=== PATIENT | female | born 1950 | race Caucasian/White ===

== ENCOUNTER 2019-07-21 08:11 | Inpatient (IN) | payer MEDICARE, OTHER ==
[2019-07-14 13:00] LABS: EOSINOPHILS % (AUTO) 1.4 % (1.0-6.0); HEMATOCRIT 39.8 % (36-46); LYMPHOCYTES # (AUTO) 1.4 K/uL (1.0-4.8); LYMPHOCYTES % (AUTO) 21.3 % (22.0-44.0); MEAN CORPUSCULAR HEMOGLOBIN 30.1 pg (26.0-34.0); MEAN CORPUSCULAR HGB CONC 32.7 G/dL (31.0-37.0); MEAN CORPUSCULAR VOLUME 92 fL (80-100); MONOCYTES # (AUTO) 0.6 K/uL (0.1-1.0); MONOCYTES % (AUTO) 9.1 % (2.0-9.0); NEUTROPHILS # (AUTO) 4.4 K/uL (1.8-7.7); NEUTROPHILS % (AUTO) 67.2 % (40.0-70.0); PLATELET COUNT (AUTO) 235 K/uL (150-450); RED BLOOD CELL COUNT(AUTO) 4.32 MIL/uL (4.00-5.20); RED CELL DISTRIBUTION WIDTH 13.1 % (11.5-14.5)
[2019-07-14 13:23] LABS: ANION GAP 6 mmol/L (8-16); CALCIUM, TOTAL 8.9 mg/dL (8.8-10.5); CARBON DIOXIDE 30 mmol/L (22-29); CHLORIDE 103 mmol/L (98-107); CREATININE 0.66 mg/dL (0.60-1.30); GLOMERULAR FILTR. RATE CALC > 60 mL/min (>60); GLUCOSE,RANDOM 87 mg/dL (70-110); POTASSIUM 4.3 mmol/L (3.5-5.1); SODIUM SERUM 139 mmol/L (136-145); UREA NITROGEN, BLOOD 15 mg/dL (7-18)
[2019-07-14 13:28] LABS: PROTHROMBIN TIME 10.3 SEC (9.4-11.6)
[2019-07-14 13:29] LABS: ALANINE AMINOTRANSFERASE 17 U/L (12-78); ALBUMIN 3.7 g/dL (3.4-5.0); ALKALINE PHOSPHATASE 42 U/L (46-116); ASPARTATE AMINOTRANSFERASE 16 U/L (15-37); BILIRUBIN,TOTAL 0.4 mg/dL (0.1-1.0); TOTAL PROTEIN, SERUM 7.2 g/dL (6.4-8.2)
[~2019-07-21] VITALS: Ht 149.9 cm; Wt 75.5 kg
[~2019-07-21 08:11] MED LIST: RINGERS SOLUTION,LACTATED 1,000 ML IV ONE
[2019-07-21] MEDS ORDERED: RINGERS SOLUTION,LACTATED 1,000 ML IV ONE ×2 (08:30→14:08)
[2019-07-21] MEDS ORDERED: BUPIVACAINE LIPOSOME/PF 1.3%-13.3MG/ML SUSPENSION 20 ML VIAL INJ ONE (10:15)
[2019-07-21] MEDS ORDERED: TRANEXAMIC ACID 1,000 MG in DEXTROSE 5%-WATER 50 ML IV ONE (10:15)
[2019-07-21] MEDS ORDERED: SODIUM CHLORIDE 0.9% 100 ML ONE (11:53)
[2019-07-21] MEDS ORDERED: DEXAMETHASONE SOD PHOS 4 MG/ML VIAL IVP ONE (12:00)
[2019-07-21] MEDS ORDERED: METOCLOPRAMIDE HCL 5 MG/ML 2 ML VIAL IVP ONE (12:00)
[2019-07-21] MEDS ORDERED: 0.9% SODIUM CHLORIDE 10 ML VIAL IVP ONE (12:00)
[2019-07-21] MEDS ORDERED: ONDANSETRON HCL 4 MG/2 ML VIAL IVP ONE (12:00)
[2019-07-21] MEDS ORDERED: FentaNYL CITRATE-PF 100 MCG/2 ML VIAL IVP ONE (12:00)
[2019-07-21] MEDS ORDERED: PROPOFOL 1% 20 ML VIAL IVP ONE (12:00)
[2019-07-21] MEDS ORDERED: SODIUM CL IRRIG SOLN BAG 3,000 ML IRRIG ONE (12:10)
[2019-07-21] MEDS ORDERED: BACITRACIN 50,000 UNITS/VIAL ONE (12:10)
[2019-07-21] MEDS ORDERED: BUPIVACAINE HCL/DEX-WATER/PF 0.75% 2 ML AMP ONE (12:32)
[2019-07-21] MEDS ORDERED: PROPOFOL 1000 MG/ISO-OSM 100 ML IV ONE (12:32)
[2019-07-21] MEDS ORDERED: ACETAMINOPHEN 1000 MG/ISO-OSM 100 ML IV ONE (12:33)
[2019-07-21] MEDS ORDERED: HYDROmorphone 2 MG/ML SYRINGE IVP PRN (13:30)
[2019-07-21] MEDS ORDERED: OxyCODONE HCL/ACETAMINOPHEN 5-325 MG TABLET PO PRN (13:30)
[2019-07-21] MEDS ORDERED: DEXTROSE 5%-LACTATED RINGERS 1,000 ML IV SCH (14:37)
[2019-07-21] MEDS ORDERED: DiphenhydrAMINE HCL 50 MG/ML VIAL IVP PRN (14:45)
[2019-07-21] MEDS ORDERED: BISACODYL 10 MG RECTAL RECTAL SUPPOSITORY PR PRN (14:45)
[2019-07-21] MEDS ORDERED: ONDANSETRON HCL 4 MG/2 ML VIAL IVP PRN (14:45)
[2019-07-21] MEDS ORDERED: ZOLPIDEM TARTRATE 10 MG TABLET PO PRN (14:45)
[2019-07-21] MEDS ORDERED: MAG HYDROX/AL HYDROX/SIMETH 30 ML SUSP UDCUP PO PRN (14:45)
[2019-07-21] MEDS ORDERED: BACITRACIN 28.4 GM OINTMENT TP PRN (14:45)
[2019-07-21] MEDS ORDERED: MAGNESIUM HYDROXIDE SUSPENSION 30 ML UDCUP PO PRN (15:15)
[2019-07-21] MEDS ORDERED: ACETAMINOPHEN 325 MG TABLET PO PRN (15:15)
[2019-07-21] MEDS: CYCLOBENZAPRINE HCL 10 MG TABLET PO SCH ×2 (16:00→20:03)
[2019-07-21 16:09] VITALS: BP 126/60
[2019-07-21] MEDS: OxyCODONE HCL/ACETAMINOPHEN 5-325 MG TABLET PO PRN ×2 (17:15→23:52)
[2019-07-21 20:00] VITALS: BP 115/60
[2019-07-21] MEDS: CELECOXIB 100 MG CAPSULE PO SCH (20:02)
[2019-07-21] MEDS: FAMOTIDINE 20 MG TABLET PO SCH (20:03)
[2019-07-21] MEDS: OXYGEN THERAPY IH SCH (20:07)
[2019-07-21] MEDS: DOCUSATE SODIUM 100 MG CAPSULE PO SCH (20:54)
[2019-07-21] MEDS ORDERED: DOCUSATE SODIUM 100 MG CAPSULE PO SCH (21:00)
[2019-07-21] MEDS: CeFAZolin 1 GM/DEXTROSE 50 ML IV SCH (21:26)
[2019-07-21 23:44] VITALS: BP 105/69
[2019-07-22] MEDS: CeFAZolin 1 GM/DEXTROSE 50 ML IV SCH (04:36)
[2019-07-22 05:27] VITALS: BP 99/58
[2019-07-22 05:38] LABS: BASOPHILS % (AUTO) 0.1 % (0.0-2.0); EOSINOPHILS % (AUTO) 0 % (1.0-6.0); HEMATOCRIT 29.6 % (36-46); HEMOGLOBIN 9.9 g/dL (12.0-16.0); LYMPHOCYTES # (AUTO) 0.9 K/uL (1.0-4.8); LYMPHOCYTES % (AUTO) 11.5 % (22.0-44.0); MEAN CORPUSCULAR HEMOGLOBIN 30.6 pg (26.0-34.0); MEAN CORPUSCULAR HGB CONC 33.4 G/dL (31.0-37.0); MEAN CORPUSCULAR VOLUME 92 fL (80-100); MONOCYTES # (AUTO) 0.8 K/uL (0.1-1.0); MONOCYTES % (AUTO) 10.1 % (2.0-9.0); NEUTROPHILS # (AUTO) 6.1 K/uL (1.8-7.7); NEUTROPHILS % (AUTO) 78.3 % (40.0-70.0); PLATELET COUNT (AUTO) 162 K/uL (150-450); RED BLOOD CELL COUNT(AUTO) 3.23 MIL/uL (4.00-5.20); RED CELL DISTRIBUTION WIDTH 12.8 % (11.5-14.5)
[2019-07-22 05:52] LABS: ANION GAP 5 mmol/L (8-16); CALCIUM, TOTAL 7.8 mg/dL (8.8-10.5); CARBON DIOXIDE 29 mmol/L (22-29); CHLORIDE 105 mmol/L (98-107); CREATININE 0.76 mg/dL (0.60-1.30); GLOMERULAR FILTR. RATE CALC > 60 mL/min (>60); GLUCOSE,RANDOM 133 mg/dL (70-110); POTASSIUM 4.4 mmol/L (3.5-5.1); SODIUM SERUM 139 mmol/L (136-145); UREA NITROGEN, BLOOD 15 mg/dL (7-18)
[2019-07-22] MEDS: CYCLOBENZAPRINE HCL 10 MG TABLET PO SCH ×3 (07:48→20:11)
[2019-07-22] MEDS: OxyCODONE HCL/ACETAMINOPHEN 5-325 MG TABLET PO PRN ×2 (07:49→18:24)
[2019-07-22] MEDS: CELECOXIB 100 MG CAPSULE PO SCH ×2 (07:49→20:12)
[2019-07-22 08:20] VITALS: BP 107/67
[2019-07-22] MEDS: DOCUSATE SODIUM 100 MG CAPSULE PO SCH ×2 (08:29→20:12)
[2019-07-22] MEDS: FAMOTIDINE 20 MG TABLET PO SCH ×2 (08:29→20:13)
[2019-07-22] MEDS ORDERED: FAMOTIDINE 20 MG TABLET PO SCH (09:00)
[2019-07-22 12:18] VITALS: BP 88/50
[2019-07-22] MEDS ORDERED: RIVAROXABAN 10 MG TABLET PO SCH (13:00)
[2019-07-22 16:16] VITALS: BP 103/53
[2019-07-22 20:01] VITALS: BP 100/54
[2019-07-22 23:50] VITALS: BP 102/56
[2019-07-23 04:30] VITALS: BP 107/63
[2019-07-23 07:23] VITALS: BP 111/64
[2019-07-23 07:28] LABS: BASOPHILS % (AUTO) 0.4 % (0.0-2.0); EOSINOPHILS % (AUTO) 0.6 % (1.0-6.0); HEMATOCRIT 28.7 % (36-46); HEMOGLOBIN 9.5 g/dL (12.0-16.0); LYMPHOCYTES # (AUTO) 1.6 K/uL (1.0-4.8); LYMPHOCYTES % (AUTO) 21.8 % (22.0-44.0); MEAN CORPUSCULAR HEMOGLOBIN 30.4 pg (26.0-34.0); MEAN CORPUSCULAR HGB CONC 33.1 G/dL (31.0-37.0); MEAN CORPUSCULAR VOLUME 92 fL (80-100); MONOCYTES # (AUTO) 0.9 K/uL (0.1-1.0); NEUTROPHILS # (AUTO) 4.8 K/uL (1.8-7.7); NEUTROPHILS % (AUTO) 65.2 % (40.0-70.0); PLATELET COUNT (AUTO) 155 K/uL (150-450); RED BLOOD CELL COUNT(AUTO) 3.13 MIL/uL (4.00-5.20); RED CELL DISTRIBUTION WIDTH 13.1 % (11.5-14.5)
[2019-07-23 07:51] LABS: ALANINE AMINOTRANSFERASE 13 U/L (12-78); ALBUMIN 2.8 g/dL (3.4-5.0); ALKALINE PHOSPHATASE 40 U/L (46-116); ANION GAP 4 mmol/L (8-16); ASPARTATE AMINOTRANSFERASE 13 U/L (15-37); BILIRUBIN,TOTAL 0.5 mg/dL (0.1-1.0); CALCIUM, TOTAL 7.9 mg/dL (8.8-10.5); CARBON DIOXIDE 30 mmol/L (22-29); CHLORIDE 103 mmol/L (98-107); CREATININE 0.71 mg/dL (0.60-1.30); GLOMERULAR FILTR. RATE CALC > 60 mL/min (>60); GLUCOSE,RANDOM 100 mg/dL (70-110); POTASSIUM 4.2 mmol/L (3.5-5.1); SODIUM SERUM 137 mmol/L (136-145); TOTAL PROTEIN, SERUM 6.2 g/dL (6.4-8.2); UREA NITROGEN, BLOOD 20 mg/dL (7-18)
[2019-07-23] MEDS: OxyCODONE HCL/ACETAMINOPHEN 5-325 MG TABLET PO PRN (08:32)
[2019-07-23] MEDS: CYCLOBENZAPRINE HCL 10 MG TABLET PO SCH ×2 (08:43→15:31)
[2019-07-23] MEDS: CELECOXIB 100 MG CAPSULE PO SCH (08:44)
[2019-07-23] MEDS: FAMOTIDINE 20 MG TABLET PO SCH (08:44)
[2019-07-23] MEDS: DOCUSATE SODIUM 100 MG CAPSULE PO SCH (08:45)
[2019-07-23 12:00] VITALS: BP 110/53
[2019-07-23] MEDS: OXYGEN THERAPY IH SCH (14:00)
[2019-07-23 15:32] VITALS: BP 112/61
== END 2019-07-23 16:30 | DRG 470 ==
LOC: 6N 08:11 → 4E 15:20
PROVIDERS: ADMIT Orthopaedic Surgery; ATTEND Orthopaedic Surgery
PROC: 0SRD0J9 Replacement of Left Knee Joint with Synthetic Substitute, Cemented, Open Approach (ICD-10-PCS; principal; 2019-07-21 12:30)
DX: M17.12 Unilateral primary osteoarthritis, left knee (principal); E66.9 Obesity, unspecified; Z68.33 Body mass index [BMI] 33.0-33.9, adult; I10 Essential (primary) hypertension; Z79.899 Other long term (current) drug therapy
CPT/HCPCS: 87081; 88300; 93005; 97110; 97116; 97162; 97530; C9290; G0238; G0378; J0131; J0690; J1100; J1170; J2405; J2704; J2765; J3010; J3490; J7050; J7060; J7120